=== PATIENT | female | born 1970 | race Caucasian/White ===

== ENCOUNTER 2017-07-04 21:29 | Emergency (ER) | payer OTHER ==
[~2017-07-04] VITALS: Ht 165.1 cm; Wt 130.0 kg
[~2017-07-04 21:29] MED LIST: ALPR0.25 PO; LANSO15 PO; LORTA5 PO; METF500 PO; PAXI20TA26 PO; ZOFR4TAB3 SL
[2017-07-04 21:31] VITALS: BP 173/92; PULSE 83; RESP 16; TEMP 97.8; O2SAT 97
[2017-07-04] MEDS ORDERED: SODIUM CHLOR 0.9% 1000 ML INJ 1,000 ML IV SCH (21:51)
[2017-07-04] MEDS ORDERED: PARO37.5CR PO (21:57)
[2017-07-04] MEDS ORDERED: LOPE-1 PO (21:57)
[2017-07-04] MEDS ORDERED: METF-382 PO (21:57)
[2017-07-04] MEDS ORDERED: FLUT1SPR5 EACH NARE (21:57)
[2017-07-04] MEDS ORDERED: FEXO1TAB97 PO (21:57)
[2017-07-04] MEDS ORDERED: ALPR.5 PO (21:57)
[2017-07-04] MEDS ORDERED: PREV15CA15 PO (21:57)
[2017-07-04 21:58] VITALS: RESP 22; O2SAT 97
[2017-07-04] MEDS ORDERED: SODIUM CHLORIDE 0.9% FLUSH 10 ML FLUSH IV FLUSH PRN (22:00)
[2017-07-04] MEDS ORDERED: ALUMINUM/MAGNESIUM/SIMETH 30 ML CUP PO ONE (22:00)
[2017-07-04] MEDS ORDERED: LIDOCAINE VISCOUS 2% SOLN 15 ML UDC PO ONE (22:00)
[2017-07-04] MEDS ORDERED: SODIUM CHLOR 0.9% 1000 ML INJ 1,000 ML IV ONE (22:00)
[2017-07-04 22:24] LABS: AUTOMATED NEUTROPHIL # 4.5 TH/MM3 (1.8-7.7); BASOPHIL # 0.1 TH/MM3 (0-0.2); BASOPHIL % 0.9 % (0.0-2.0); EOSINOPHIL # 0.1 TH/MM3 (0-0.4); EOSINOPHIL % 1.9 % (0.0-4.0); HEMATOCRIT 41.3 % (35.0-46.0); HEMO FLAGS DIFF FINAL; LYMPH % 31.9 % (9.0-44.0); LYMPHOCYTE # 2.4 TH/MM3 (1.0-4.8); MEAN CELL VOLUME 84.7 FL (80.0-100.0); MEAN CORPUSCULAR HGB CONC 34.3 % (32.0-36.0); MONO % 4.6 % (0.0-8.0); NEUT % 60.7 % (16.0-70.0); PLATELET COUNT 175 TH/MM3 (150-450); RED BLOOD COUNT 4.87 MIL/MM3 (4.00-5.30); RED CELL DISTRIBUTION WIDTH 13.8 % (11.6-17.2); WHITE BLOOD COUNT 7.4 TH/MM3 (4.0-11.0)
[2017-07-04 22:28] LABS: BLOOD, URINE NEG (NEG); GLUCOSE,URINE NEG (NEG); KETONE, URINE NEG (NEG); NITRITE,URINE NEG (NEG); SQUAMOUS EPITHELIAL CELL URINE 1 /hpf (0-5); URINE COLOR YELLOW (YELLW/STRAW)
[2017-07-04 22:30] LABS: COMMENT (UR) CULT NOT INDICATED; CULTURE IF INDICATED CULT NOT INDICATED
[2017-07-04] MEDS ORDERED: ONDANSETRON HCL 4 MG/2 ML VIAL IV PUSH ONE (22:30)
[2017-07-04] MEDS ORDERED: KETOROLAC TROMETHAMINE 30 MG/ML (IVP) VIAL IV PUSH ONE (22:30)
[2017-07-04 22:44] LABS: ALKALINE PHOSPHATASE 78 U/L (45-117); ALT (GPT) 67 U/L (10-53); ANION GAP 7 MEQ/L (5-15); AST (GOT) 29 U/L (15-37); BICARBONATE 27.3 MEQ/L (21.0-32.0); BLOOD UREA NITROGEN 8 MG/DL (7-18); CHLORIDE 102 MEQ/L (98-107); CREATINE KINASE 85 U/L (26-192); GLOMERULAR FILTRATION RATE 87 ML/MIN (>89); SODIUM (NA) 136 MEQ/L (136-145); TOTAL BILIRUBIN ADULT 0.5 MG/DL (0.2-1.0)
--- NOTE | 2017-07-04 22:55 | PD ---
HPI Chief Complaint: Cold / Flu Symptoms Time Seen by Provider: 21:42 Travel History International Travel<30 days: No Contact w/Intl Traveler<30days: No Traveled to known affect area: No History of Present Illness HPI The patient is 47 years old and describes total body pain, coughing, epigastric burning consistent with GERD and subjective fever. She thinks she might have the flu or cold. Location generalized and epigastric. Timing constant. Severity moderate. No modifying factor. PFSH Past Medical History Asthma: No Blood Disorders: No Anxiety: Yes Depression: Yes Heart Rhythm Problems: No Cancer: No Cardiovascular Problems: Yes High Cholesterol: Yes Chest Pain: No Congestive Heart Failure: No COPD: No Diabetes: Yes Patient Takes Glucophage: Yes (1000MG METFORMIN 07/02/17) Diminished Hearing: No Endocrine: No Gastrointestinal Disorders: Yes (GERD) GERD: Yes Genitourinary: No Hepatitis: No Hiatal Hernia: Yes Immune Disorder: No Medical other: No Musculoskeletal: No Neurologic: No Psychiatric: Yes Reproductive: No Respiratory: No Immunizations Current: Yes Migraines: Yes Sleep Apnea: No Thyroid Disease: No ?: Not LMP: 06/23/17 : 3 Para: 1 Miscarriage: 1 : 1 Ovarian Cysts: Yes (FIBROID CYST) Past Surgical History Abdominal Surgery: Yes (GALLBLADDER REMOVED) Cholecystectomy: Yes Ear Surgery: No Eye Surgery: No Genitourinary Surgery: No Gynecologic Surgery: No Joint Replacement: Yes Oral Surgery: No Pacemaker: No Other Surgery: Yes (choly and mass removed from right neck) Social History Alcohol Use: Yes (WEEKENDS) Tobacco Use: Yes (1/2 PPD) Substance Use: No Allergies-Medications (Allergen,Severity, Reaction): Coded Allergies: No Known Allergies (Verified , 07/04/17) Reported Meds & Prescriptions Reported Meds & Active Scripts Active Zofran Odt (Ondansetron Odt) 4 Mg Tab 4 Mg SL Q8HR PRN Lortab (Hydrocodone-Acetaminophen) 7.5-325 Mg Tab 1-2 Tab PO Q6H PRN Reported Prevacid (Lansoprazole) 15 Mg Capdr 15 Mg PO DAILY Imodium A-D (Loperamide HCl) 2 Mg Capsule 2 Mg PO DIRECTED PRN One capsule after each loose stool. Not to exceed 8 tablets per day. Nadine-D 24 Hour Allergy (Fexofenadine-Pseudoephedrine ER 24 HR) 180-240 Shelley 1 Tab PO DAILY Flonase Nasal [place] (Fluticasone Nasal [place]) 50 Mcg/Act [place] 50 Mcg EACH NARE BID Metformin ER (Metformin HCl) 1,000 Mg Shelley 1,000 Mg PO DAILY With evening meal Xanax (Alprazolam) 0.5 Mg Tab 0.5 Mg PO Q8H PRN Paxil CR (Paroxetine HCl) 37.5 Mg Tab 37.5 Mg PO DAILY Review of Systems Except as stated in HPI: all other systems reviewed are Neg General / Constitutional: Positive: Fever Respiratory: Positive: Cough Physical Exam Narrative GENERAL: 47-year-old female well-nourished well-developed SKIN: Warm and dry. HEAD: Atraumatic. Normocephalic. EYES: Pupils equal and round. No scleral icterus. No injection or drainage. ENT: No nasal bleeding or discharge. Mucous membranes pink and moist. NECK: Trachea midline. No JVD. CARDIOVASCULAR: Regular rate and rhythm. RESPIRATORY: No accessory muscle use. Clear to auscultation. Breath sounds equal bilaterally. GASTROINTESTINAL: Soft. No focus of tenderness. MUSCULOSKELETAL: Extremities without clubbing, cyanosis, or edema. No obvious deformities. NEUROLOGICAL: Awake and alert. No obvious cranial nerve deficits. Motor grossly within normal limits. Five out of 5 muscle strength in the arms and legs. Normal speech. PSYCHIATRIC: Appropriate mood and affect; insight and judgment normal. Data Data Last Documented VS Vital Signs Date Time Temp Pulse Resp B/P (MAP) Pulse Ox O2 Delivery O2 Flow Rate FiO2 07/04/17 21:58 22 97 Room Air 07/04/17 21:31 97.8 83 Vital signs reviewed blood pressure 173/92 Orders Orders Complete Blood Count With Diff (07/04/17 21:51) Comprehensive Metabolic Panel (07/04/17 21:51) Lipase (07/04/17 21:51) Urinalysis - C+S If Indicated (07/04/17 21:51) Iv Access Insert/Monitor (07/04/17 21:51) Ecg Monitoring (07/04/17 21:51) Oximetry (07/04/17 21:51) Sodium Chlor 0.9% 1000 Ml Inj (Ns 1000 M (07/04/17 21:51) Sodium Chloride 0.9% Flush (Ns Flush) (07/04/17 22:00) Al-Mag Hy-Si 40-40-4 Mg/Ml Liq (Mag-Al P (07/04/17 22:00) Lidocaine 2% Viscous (Xylocaine 2% Visco (07/04/17 22:00) Creatine Kinase (Cpk) (07/04/17 21:51) Sodium Chlor 0.9% 1000 Ml Inj (Ns 1000 M (07/04/17 22:00) Ketorolac Inj (Toradol Inj) (07/04/17 22:30) Ondansetron Inj (Zofran Inj) (07/04/17 22:30) Acetamin-Hydrocod 325-5 Mg ([place] 5-325 (07/04/17 23:15) Labs Laboratory Tests Test 07/04/17 22:00 White Blood Count 7.4 TH/MM3 Red Blood Count 4.87 MIL/MM3 Hemoglobin 14.1 GM/DL Hematocrit 41.3 % Mean Corpuscular Volume 84.7 FL Mean Corpuscular Hemoglobin 29.0 PG Mean Corpuscular Hemoglobin Concent 34.3 % Red Cell Distribution Width 13.8 % Platelet Count 175 TH/MM3 Mean Platelet Volume 8.6 FL Neutrophils (%) (Auto) 60.7 % Lymphocytes (%) (Auto) 31.9 % Monocytes (%) (Auto) 4.6 % Eosinophils (%) (Auto) 1.9 % Basophils (%) (Auto) 0.9 % Neutrophils # (Auto) 4.5 TH/MM3 Lymphocytes # (Auto) 2.4 TH/MM3 Monocytes # (Auto) 0.3 TH/MM3 Eosinophils # (Auto) 0.1 TH/MM3 Basophils # (Auto) 0.1 TH/MM3 CBC Comment DIFF FINAL Differential Comment Urine Color YELLOW Urine Turbidity CLEAR Urine pH 5.0 Urine Specific [place] 1.009 Urine Protein NEG mg/dL Urine Glucose (UA) NEG mg/dL Urine Ketones NEG mg/dL Urine Occult Blood NEG Urine Nitrite NEG Urine Bilirubin NEG Urine Urobilinogen LESS THAN 2.0 MG/DL Urine Leukocyte Esterase NEG Urine RBC 1 /hpf Urine WBC 1 /hpf Urine Squamous Epithelial Cells 1 /hpf Microscopic Urinalysis Comment CULT NOT INDICATED Blood Urea Nitrogen 8 MG/DL Creatinine 0.72 MG/DL Random Glucose 181 MG/DL Total Protein 7.2 GM/DL Albumin 3.6 GM/DL Calcium Level 8.8 MG/DL Alkaline Phosphatase 78 U/L Aspartate Amino Transf (AST/SGOT) 29 U/L Alanine Aminotransferase (ALT/SGPT) 67 U/L Total Bilirubin 0.5 MG/DL Sodium Level 136 MEQ/L Potassium Level 4.0 MEQ/L Chloride Level 102 MEQ/L Carbon Dioxide Level 27.3 MEQ/L Anion Gap 7 MEQ/L Estimat Glomerular Filtration Rate 87 ML/MIN Total Creatine Kinase 85 U/L Lipase 86 U/L [facility] Medical Decision Making Medical Screen Exam Complete: Yes Emergency Medical Condition: Yes Medical Record Reviewed: Yes Differential Diagnosis Influenza, PNA, electrolyte imbalance, UTI, anemia, renal failure Narrative Course CBC & BMP Diagram 07/04/17 22:00 Total Protein 7.2, Albumin 3.6, Calcium Level 8.8, Alkaline Phosphatase 78, Aspartate Amino Transf (AST/SGOT) 29, Alanine Aminotransferase (ALT/SGPT) 67 H, Total Bilirubin 0.5 Lipase 86 UA: no UTI 2L NS, GI cocktail, toradol, and zofran. pt reports some improvement. reiteration of paraspinal muscle soreness on reassessment. minimal TTP parathoracic musculature. work note. return precautions discussed. Diagnosis Primary Impression: Total body pain Additional Impressions: Gastritis Qualified Codes: K29.70 - Gastritis, unspecified, without bleeding Viral syndrome Referrals: Primary Care Physician call for appointment Additional Instructions: You have a choice when it comes to health care, and we are glad that you chose [facility]. Hopefully, we have met your expectations on today's visit. You are welcome to return to [facility] at any time, as we are committed to meeting the health care needs of our community. Med/Other Pt SpecificInfo: Prescription(s) given Scripts Ondansetron Odt (Zofran Odt) 4 Mg Tab 4 MG SL Q8HR Y for Nausea/Vomiting, #10 TAB 0 Refills Prov: Sanjeev Esquivel MD 07/04/17 Hydrocodone-Acetaminophen (Lortab) 7.5-325 Mg Tab 1-2 TAB PO Q6H Y for PAIN SCALE 6 TO 10, #15 TAB 0 Refills Prov: Sanjeev Esquivel MD 07/04/17 Disposition: 01 DISCHARGE HOME Condition: Stable Sanjeev Esquivel MD Jul 04, 2017 22:55
[2017-07-04] MEDS ORDERED: HYDR-3534 PO (23:04)
[2017-07-04] MEDS ORDERED: ACETAMINOPHEN/HYDROcodone 325 MG/5 MG TAB PO ONE (23:15)
[2017-07-04] MEDS ORDERED: ZOFR4TAB3 SL (23:25)
== END 2017-07-05 00:25 | disposition home or self-care (01) ==
LOC: NEPD 21:29
DX: K29.70 Gastritis, unspecified, without bleeding (principal); R50.9 Fever, unspecified; E11.9 Type 2 diabetes mellitus without complications; Z72.0 Tobacco use
CPT/HCPCS: 80053; 81001; 82550; 83690; 85025; 96361; 96374; 96375; 99284; J1885; J2405; J7030